=== PATIENT | female | born 1970 | race American Indian/Alaskan Native ===

== ENCOUNTER 2017-10-02 05:51 | Observation (INO) | payer BC ==
--- NOTE | 2017-09-27 11:33 | Anesthesia Consultation ---
Anesthesia Consult and Med Hx Date of service: 10/02/17 - Airway Anesthetic Teeth Evaluation: Good ROM Head & Neck: Adequate Mental/Hyoid Distance: Adequate Mallampati Class: Class I Intubation Access Assessment: Good - Pulmonary Exam CTA: Yes - Cardiac Exam Cardiac Exam: RRR - Pre-Operative Health Status ASA Pre-Surgery Classification: ASA2 Proposed Anesthetic Plan: General Nerve Block: TAP - Central Nervous System Hx Psychiatric Problems: No - Gastrointestinal Hx Gastroesophageal Reflux Disease: Yes - Hematic Hx Anemia: Yes - Other Systems Hx Alcohol Use: Yes (occas) Hx Cancer: No Hx Obesity: Yes - Additional Comments Anesthesia Medical History Comments: Informed consent obtained
[2017-09-27 11:38] LABS: Basophils # (Auto) 0.1 K/mm3 (0.0-0.1); Basophils % (Auto) 0.9 % (0.0-1.8); Eosinophils # (Auto) 0.4 K/mm3 (0.0-0.4); Eosinophils % (Auto) 3.7 % (0.0-4.3); Hematocrit 36.6 % (30.3-42.9); Hemoglobin 11.9 gm/dl (10.1-14.3); Lymphocytes # (Auto) 4.1 K/mm3 (1.2-5.4); Lymphocytes % (Auto) 38.3 % (13.4-35.0); Mean Corpuscular HGB Conc 33 % (30-34); Mean Corpuscular Hemoglobin 28 pg (28-32); Mean Corpuscular Volume 87 fl (79-97); Monocytes # (Auto) 0.6 K/mm3 (0.0-0.8); Platelet Count 353 K/mm3 (140-440); Red Cell Distribution Width 15.2 % (13.2-15.2)
--- NOTE | 2017-10-01 18:42 | History and Physical Report ---
History of Present Illness Date of examination: 09/27/17 History of present illness: Past History : 2 Term Births: 2 Living Children: 2 svdx2 [employer] AG[employer] History Operations: Tubal Ligation Cholecystectomy hemorrhoidectomyx2 Abnormal PAP: negative Infection History HIV Risk Eval: no Hx of STD: None Active Medications (reviewed today): IBUPROFEN 800 MG ORAL TABLET (IBUPROFEN) 1 po TID (PRN) OXYCODONE-ACETAMINOPHEN 5-325 MG ORAL TABLET (OXYCODONE-ACETAMINOPHEN) 1-2po q6h Current Allergies (reviewed today): No known allergies Past Medical History: Reviewed history from 06/24/2014 and no changes required: Negative Past Medical History Past Surgical History: Reviewed history from 06/24/2014 and no changes required: Tubal Ligation Cholecystectomy hemorrhoidectomyx2 Family History Summary: Reviewed history Last on 07/04/2017 and no changes required:10/01/2017 Other family member - Has No Family History of Breast Cancer - Entered On: 06/24 Other family member - Has No Family History of Ovarvian Cancer - Entered On: 07/2014 Other family member - Has No Family History of DVT/PE on OCP - Entered On: 06/24 Mother (biol.) - Has Family History Colon Cancer - Entered On: 07/09/2016 Other family member - Has No Family History of Biliary Tract Cancer - Entered On : 07/09/2016 Other family member - Has No Family History of Brain Cancer - Entered On: 2015 Other family member - Has No Family History of Kidney/Urinary Tract Cancer - Entered On: 07/09/2016 Other family member - Has No Family History of Pancreatic Cancer - Entered On: 07/09/2016 Other family member - Has No Family History of Stomach Cancer - Entered On: Other family member - Has No Family History of Small Bowel Cancer - Entered On: 07/09/2016 Other family member - Has No Family History of Uterine Cancer - Entered On: Social History: Reviewed history from 07/04/2017 and no changes required: Patient is Smoking History: Patient has never smoked. Risk Factors: PAP Smear History: Date of Last PAP Smear: 07/04/2017 Previous Tobacco Use: Signed On - 07/27/2017 Smoked Tobacco Use: Never smoker Smokeless Tobacco Use: Never Passive smoke exposure: no Drug use: no HIV high-risk behavior: no Previous Alcohol Use: Signed On - 07/27/2017 Alcohol use: no Exercise: no Seatbelt use: 100 % Mammogram History: Date of Last Mammogram: 06/21/2016 PAP Smear History: Date of Last PAP Smear: 07/04/2017 Review of Systems General Denies fever, chills, sweats, anorexia, fatigue, weakness, malaise, weight loss and sleep disorder. Complains of menorrhagia and pelvic pain. Denies vaginal discharge, incontinence, dysuria, hematuria, urinary frequency, amenorrhea, abnormal vaginal bleeding, genital sores, decreased libido, painful periods, painful sex, urinary urgency, hot flashes, vaginal dryness, vaginal itching and vaginal odor. CV Denies chest pains, palpitations, syncope, dyspnea on exertion, orthopnea, PND and peripheral edema. Resp Denies cough, dyspnea at rest, excessive sputum, hemoptysis, wheezing and pleurisy. GI Denies nausea, vomiting, diarrhea, constipation, change in bowel habits, abdominal pain, melena, hematochezia, jaundice, gas/bloating, indigestion/ heartburn, dysphagia and odynophagia. Endo Denies cold intolerance, heat intolerance, polydipsia, polyphagia, polyuria and unusual weight change. Breast Denies left breast lump, right breast lump, nipple discharge, bloody discharge from nipple, breast pain, abnormal mammogram and breast enlargement. MS Denies back pain, joint pain, joint swelling, muscle cramps, muscle weakness, stiffness, arthritis, sciatica, restless legs, leg pain at night and leg pain with exertion. Derm Denies rash, itching, dryness and suspicious lesions. Neuro Denies paralysis, paresthesias, headache, seizures, tremors, vertigo, transient blindness, frequent falls, frequent headaches and difficulty walking. Psych Denies depression, anxiety, irritability and mood swings. Eyes Denies blurring, diplopia, irritation, discharge, vision loss, eye pain and photophobia. ENT Denies earache, ear discharge, tinnitus, decreased hearing, nasal congestion, nosebleeds, sore throat and hoarseness. Allergy Denies urticaria, allergic rash, hay fever and recurrent infections. Heme Denies abnormal bruising, bleeding and enlarged lymph nodes. Physical Exam Appearance: well developed, well nourished, no acute distress Other Exams Breast exam: no masses or nipple discharge Lungs: no rales, rhonchi, or wheezes Heart: S1, S2, no murmur, rub, or gallop Abdomen: soft, non-tender, no masses Skin: no ulcers, xanthomas Extremities: normal alignment, no joint enlargement, crepitus, masses or tenderness; normal tone and strength Genitourinary Exam Vulva: normal, no lesions or discharge Urethral meatus: normal size and location, no lesions or discharge Urethra: no discharge Bladder: no cystocele Vagina: normal appearance, no discharge, lesions. No evidence of cystocele or rectocele. Cervix: normal appearance, no lesions, no discharge Uterus: normal position, midline, mobile Adnexa: no masses or tenderness Impression & Recommendations: Problem # 1: Menorrhagia (ICD-626.2) (MQU72-J66.0) Diagnosis explained to patient . Questions answered. Discussed with patient various medical and surgical therapies common for treatment: Hormonal/medical therapy,endometrial ablation or hysterectomy. Her updated medication list for this problem includes: Ibuprofen 800 Mg Oral Tablet (Ibuprofen) ..... 1 po tid (prn) Consent reviewed and signed . Possible laparoscopy or laparotomy explained to patient. The risks and alternatives for this surgery were reviewed with the patient. She was informed of possible bleeding, infection, injury to bowel, bladder, ureters or other adjacent organs. She was informed she will not be able to get after her uterus has been removed. She desires ovarian conservation. She was informed she may require surgery later to have her ovaries removed for a benign or mailgnant condition The patient was instructed/informed the following: The normal length of hospital stay for this procedure. Nothing to eat or drink after midnight the evening prior to surgery. Clear liquids the day before surgery. Fleets enema the day prior to surgery. Pre-op instruction sheets given. Wound care instructions given. Infection precautions reviewed, patient to call for any signs or symptoms of infection. The usual discomforts associated with this procedure were detailed. Proper use of pain medicines was reviewed. Patient was given ample opportunity to have all her questions answered before signing informed consent. Problem # 2: Fibroids, uterus (ICD-218.9) ([id number]-P02.9) Diagnosis explained to patient . Questions answered. Discussed with patient various medical, surgical and radioloigal therapies common for treatment: Hormonal/medical therapy, fibroid embolization, removal of fibroids or hysterectomy She desires to proceed with hysterectomy Her updated medication list for this problem includes: Ibuprofen 800 Mg Oral Tablet (Ibuprofen) ..... 1 po tid (prn) Oxycodone-acetaminophen 5-325 Mg Oral Tablet (Oxycodone-acetaminophen) ..... 1-2po q6h Problem # 3: Pelvic and perineal pain (ICD-789.00) (NTG55-K00.2) Endometriosis was explained, shewa informed the disease ,if present, will progress and worsen if her ovaries remain intact. It was extensively explained to her that her pain may persist, recur or change in nature due to the difficulty with diagnosis chronic pelvic pain or development of adhesions. She declined other treatment options at this time. Her updated medication list for this problem includes: Ibuprofen 800 Mg Oral Tablet (Ibuprofen) ..... 1 po tid (prn) Oxycodone-acetaminophen 5-325 Mg Oral Tablet (Oxycodone-acetaminophen) ..... 1-2po q6h Problem # 4: Pelvic mass, Left lower quadrant (ICD-789.34) ([id number]) Her updated medication list for this problem includes: Ibuprofen 800 Mg Oral Tablet (Ibuprofen) ..... 1 po tid (prn) Oxycodone-acetaminophen 5-325 Mg Oral Tablet (Oxycodone-acetaminophen) ..... 1-2po q6h Medications Added to Medication List This Visit: 1) Ibuprofen 800 Mg Oral Tablet (Ibuprofen) .... 1 po tid (prn) 2) Oxycodone-acetaminophen 5-325 Mg Oral Tablet (Oxycodone-acetaminophen) .... 1-2po q6h Prescriptions: IBUPROFEN 800 MG ORAL TABLET (IBUPROFEN) 1 po TID (PRN) #30 x 1 Entered and Authorized by: Lauryn Huffman MD Method used: Print then Give to Patient RxID: [id number] OXYCODONE-ACETAMINOPHEN 5-325 MG ORAL TABLET (OXYCODONE-ACETAMINOPHEN) 1-2po q6h #30 x 0 Entered and Authorized by: Lauryn Huffman MD Method used: Print then Give to Patient RxID: [id number] Medications and Allergies Allergies Allergy/AdvReac Type Severity Reaction Status Date / Time No Known Allergies Allergy Unverified 09/26/17 11:09 Home Medications Medication Instructions Recorded Confirmed Last Taken Type No Known Home Medications [No 09/26/17 09/26/17 Unknown History Reported Home Medications] Active Meds: Active Medications Cefazolin Sodium (Ancef/Sterile Water 2 Gm/20 Ml) 2 gm in 20 mls @ 80 mls/hr IV PREOP NR PRN Reason: Protocol Exam Vital Signs Temp Pulse Resp BP 98.8 F 80 18 124/76 09/27/17 11:10 09/27/17 11:10 09/27/17 11:10 09/27/17 11:10 Results - Labs 09/27/17 11:25
[~2017-10-02 05:51] MED LIST: ANCEF/STERILE WATER 2 GM/20 ML 2 GM/20 ML SYRINGE IV NR
[2017-10-02] MEDS ORDERED: LACTATED RINGERS 1,000 ML ONE (07:16)
--- NOTE | 2017-10-02 07:16 | Anesthesia Day of Surgery ---
Anesthesia Day of Surgery - Day of Surgery Patient Examined: Yes Patient H&P Reviewed: Yes Patient is NPO: Yes
[2017-10-02] MEDS ORDERED: SUBLIMAZE IV NR (07:17)
[2017-10-02] MEDS ORDERED: MARCAINE 0.5% INFILTRATI ONE (07:23)
[2017-10-02] MEDS ORDERED: MARCAINE 0.5% 30 ML INFILTRATI ONE (07:23)
[2017-10-02] MEDS ORDERED: DECADRON ONE ×2 (07:23→09:13)
[2017-10-02] MEDS ORDERED: XYLOCAINE 1% 20 mL ONE (07:23)
[2017-10-02] MEDS ORDERED: DILAUDID ONE ×2 (07:35→11:32)
[2017-10-02] MEDS ORDERED: DIPRIVAN 10 MG/ML IV ONE (07:35)
[2017-10-02] MEDS ORDERED: ZEMURON IV ONE (07:36)
[2017-10-02] MEDS ORDERED: XYLOCAINE MPF 2% ONE (07:36)
[2017-10-02] MEDS ORDERED: NEOSPORIN GU IR ONE ×2 (07:44→10:00)
[2017-10-02] MEDS ORDERED: LACTATED RINGERS 1,000 ML IV SCH (08:00)
[2017-10-02] MEDS ORDERED: PEPCID PO NR (08:00)
[2017-10-02] MEDS ORDERED: VERSED IV NR (08:00)
[2017-10-02] MEDS ORDERED: NEURONTIN PO NR (08:00)
[2017-10-02] MEDS ORDERED: ZOFRAN IV PRN ×2 (09:11→12:08)
[2017-10-02] MEDS ORDERED: NACL 0.9% IR ONE (10:00)
[2017-10-02] MEDS ORDERED: ROBINUL ONE (10:08)
[2017-10-02] MEDS ORDERED: NEOSTIGMINE ONE (10:08)
[2017-10-02] MEDS: DILAUDID IV PRN ×3 (10:50→11:30)
--- NOTE | 2017-10-02 11:09 | Post Anesthesia Evaluation ---
- Post Anesthesia Evaluation Patient Participated: Yes Airway Patent: Yes Stable Respiratory Function: Yes Nausea/Vomiting: No Temp > 96.8F: Yes Pain Manageable: Yes Adequeate Hydration: Yes Anesthesia Complications: No Block Receding Appropriately: Not Applicable Patient on Ventilator: No
[2017-10-02] MEDS ORDERED: TORADOL ONE (11:11)
[2017-10-02] MEDS ORDERED: TYLENOL PO PRN (12:08)
[2017-10-02] MEDS ORDERED: TYLENOL PR PRN (12:08)
[2017-10-02] MEDS ORDERED: REGLAN IV PRN (12:08)
[2017-10-02] MEDS ORDERED: ANCEF/NS 1 GM/50 ML 1 GM/50 ML BAG IV SCH (12:08)
[2017-10-02] MEDS ORDERED: REGLAN PO PRN (12:08)
[2017-10-02] MEDS ORDERED: ZOFRAN PO PRN (12:08)
[2017-10-02] MEDS ORDERED: MORPHINE IV PRN ×2 (12:08)
[2017-10-02] MEDS: TORADOL IV SCH ×2 (12:38→18:36)
[2017-10-02] MEDS: NACL 0.9% 1000 ML 1,000 ML IV SCH ×2 (13:00→20:54)
--- NOTE | 2017-10-02 13:08 | Post Operative Note ---
Pre-op diagnosis: menorrhagia, fibroids, pelvic mass Post-op diagnosis: same Procedure: RATH Anesthesia: GETA Director Cardiology: JACLYN BECERRA Estimated blood loss: minimal Specimen disposition: to lab Condition: stable Disposition: PACU
[2017-10-02] MEDS: PERCOCET 5/325 PO PRN ×2 (15:06→20:52)
[2017-10-02] MEDS: ceFAZolin 1 GM in NACL 0.9% 20 ML IV SCH ×2 (15:22→22:42)
--- NOTE | 2017-10-02 16:53 | Operative Report ---
Operative Report Operative Report: Date: 10/02/2017 Preoperative diagnosis: 1. Menorrhagia 2. Uterine fibroids 3. Left pelvic mass 4. Pelvic pain Postoperative diagnosis: 1. Menorrhagia 2. Uterine fibroids 3. Left pelvic mass 4. Pelvic pain Procedure: 1. Robotic-assisted laparoscopic total hysterectomy 2. Laparoscopic bilateral salpingectomy 3. Laparoscopic excision of left broad ligament mass Surgeon: Lauryn Huffman MD Manager Field Sales: Kavita Diallo assembler surgical garment Anesthesiologist: Ailyn Angulo M.D. Anesthesia: General endotracheal anesthesia EBL: Approximately [] mL Findings: Uterus was sounded to 10 cm. Grossly normal ovaries. Grossly normal interrupted bilateral fallopian tubes. Uterus with multiple uterine fibroids. Approximate 4 cm left broad ligament mass. Procedure: Patient was taken to the OR and placed in the supine position. General anesthesia was induced and an oral gastric tube was placed. Her neck and head were placed on foam support. Foam eye protection with goggles were secured in place. Then foam face protection was placed and secured. Foam shoulder pads were then positioned on her shoulders for Trendelenburg positioning. She was then placed in dorsolithotomy position. Exam under anesthesia as above. The abdomen and vagina were then prepped and draped in the usual sterile fashion. Timeout was performed. A Montoya catheter was inserted into the bladder with drainage of clear yellow urine. The operative speculum was introduced into the vagina and the anterior lip of the cervix was grasped with single-toothed tenaculum. The uterus was sounded to 10 cm. The cervix was progressively dilated to allow the large V care uterine manipulator. The bulb of the manipulator was inflated and the speculum and tenaculum were removed. The cup of the manipulator was placed around the cervix and the blue occluder of the manipulator was properly positioned in the vagina. A moist laparotomy sponge that was saturated with a solution of polymyxin and saline was placed in the vagina to ensure pneumoperitoneum. Sterile gloves were placed and attention was turned to the abdomen. A 10 mm vertical supraumbilical incision was made approximately 10 cm superior to the elevated fundus of the uterus. A 12 mm trocar with the laparoscope and camera attached was introduced through this incision under direct visualization. The abdomen was insufflated. No obvious bowel, bladder, ureteral, or major vascular injury was noted. The patient was then placed in steep Trendelenburg position and the following trochars were placed under direct visualization: 8 mm robotic trochars were placed through incisions made in the bilateral midclavicular lower abdominal region approximately 10 cm lateral and approximately 2 cm below the midline incision, and a 5 mm trocar was placed through an incision made in the right lower lateral pelvis approximately 2 cm superior to the iliac crest. The 10 mm laparoscope was then replaced by a 5 mm laparoscope that was placed through the 5 millimeter lateral trocar. The 12 mm trocar was then removed in the Sharan Melton fascial closure device was placed through the incision and a 0 Vicryl was placed through the fascia. Once the suture was secured the 12 mm trocar was reintroduced. Once the trochars were in the appropriate positions, the da Lauren robot system was engaged. The EndoShears and bipolar device was placed through the 8 mm trochars and positioned then attention was turned to the console. The uterus was elevated and bilateral salpingectomy was performed. Each tube was removed through the 5 mm trocar and sent to pathology in separate containers. Then the utero-ovarian ligaments were clamped. cauterized and incised bilaterally using 30 W of energy. Then the round ligaments were clamped , cauterized and incised bilaterally. The anterior leaf of the broad ligament was elevated and careful blunt and sharp dissection the bladder flap was created and dissected away from the lower uterine segment and cervix. The posterior leaf of the broad ligament was dissected away from the uterine vessels. The cup of the uterine manipulator was palpated both anteriorly and posteriorly. Course of the ureters was visualized and was confirmed to be away from the operative field. The uterine vessels were then clamped and cauterized bilaterally. Blanching of the uterus was then noted. Attention was again turned to the anterior lower uterine segment and the bladder was confirmed to be away from the operative field. Then attention was turned again to the posterior where the cup of the manipulator was palpated and a colpotomy was performed down to the cup. The incision was extended in the lateral position the uterine vessels that were again clamped and cauterized and incised. Continuing along the cup of the manipulator in a circumferential manner the colpotomy was completed. The uterus and cervix were then removed through the vaginal incision. The pelvis was irrigated with warm normal saline. A moist laparotomy sponge was placed in the vagina to maintain pneumoperitoneum. Attention was turned to the left broad ligament with the peritoneum was dissected away from the pelvic mass with both blunt and sharp dissection. The ureter was posterior to the mass away from the operative field. The laparotomy sponge was removed from the vagina and the mass was then removed also from the vagina. The pelvis was again irrigated with warm normal saline. The vagina cuff was reapproximated using V LOC 180 suture in a simple running stitch. Then a J stitch was performed to secure the suture. Again the pelvis was copiously irrigated with polymixin in warm normal saline. The laparotomy sponge was removed from the vagina. No bowel, bladder, ureteral or major vascular injury was noted. Once hemostasis was noted, Kapil was applied to the operative field to ensure hemostasis. Then Interceed was applied to the operative field to decrease formation of adhesions. Again hemostasis was noted. Then the instruments were removed, the robot was disengaged. The 12 mm trocar was removed and the fascia was ligated with the 0 Vicryl suture that was placed at the beginning of the procedure. The patient was taken out of Trendelenburg position, the abdomen was desufflated, the remaining trochars were removed. Incisions were reapproximated using 4-0 Vicryl in a subcuticular manner. Surgiseal was placed over the incisions. The vagina was then inspected, no bleeding was noted and clear yellow urine was draining into the Montoya bag from the bladder at the end of the procedure. Patient was taken to recovery room in stable condition.
[2017-10-03] MEDS: TORADOL IV SCH ×2 (00:19→06:23)
[2017-10-03] MEDS: NACL 0.9% 1000 ML 1,000 ML IV SCH (04:03)
[2017-10-03 05:33] LABS: Hematocrit 28.8 % (30.3-42.9); Hemoglobin 9.6 gm/dl (10.1-14.3); Mean Corpuscular HGB Conc 33 % (30-34); Mean Corpuscular Hemoglobin 28 pg (28-32); Mean Corpuscular Volume 85 fl (79-97); Platelet Count 262 K/mm3 (140-440); Red Blood Count 3.37 M/mm3 (3.65-5.03); Red Cell Distribution Width 15.1 % (13.2-15.2)
--- NOTE | 2017-10-03 07:17 | Discharge Summary ---
Providers - Providers Date of Admission: 10/02/17 10:44 Date of discharge: 10/03/17 Attending physician: JACLYN BECERRA Primary care physician: MOO ALAMO Hospitalization Condition: Good Procedures: RATH, (B) salpingectomy, excision of pelvic mass Hospital course: Uncomplicated. Disposition: - TO HOME OR SELFCARE - Discharge Diagnoses (1) Anemia Status: Acute Qualifiers: Other causes of anemia: acute posthemorrhagic Comment: Asymptomatic, with stable VS (2) History of robot-assisted laparoscopic hysterectomy Status: Acute (3) Status post bilateral salpingectomy Status: Acute (4) Pelvic mass in female Status: Resolved Core Measure Documentation - Palliative Care Palliative Care/ Comfort Measures: Not Applicable - Core Measures Any of the following diagnoses?: none Exam - Constitutional Vitals: Temp Pulse Resp BP Pulse Ox 98.7 F 68 20 114/78 90 10/03/17 04:20 10/03/17 04:20 10/03/17 04:20 10/03/17 04:10/02/17 16:40 General appearance: Present: no acute distress - Respiratory Respiratory effort: normal Respiratory: negative: CTA - Cardiovascular Rhythm: regular - Extremities Extremities: no ischemia, No edema - Abdominal General gastrointestinal: Present: soft, non-tender, non-distended, normal bowel sounds - Integumentary Integumentary: Present: clear, warm, dry (Trocar sites C/D/I) - Psychiatric Psychiatric: appropriate mood/affect, intact judgment & insight Plan Activity: other (No sex. No driving. ) Weight Bearing Status: Full Weight Bearing (Ambulate ~1mile on your property a day. Void frequently to avoid pressure occurring in the vagina. Use your incentive spirometer every hour while awake.) Diet: regular (Eat small meal frequently, avoid spicy, high salt and starchy food. Drink ~100oz water a day) Wound: open to air, keep clean and dry (May clean incisions with water. ) Special Instructions: no heavy lifting (Greater than 25#) Follow up with: MOO ALAMO MD [Primary Care Provider] - 7 Days JACLYN BECERRA MD [Staff Physician] - (As scheduled)
[2017-10-03] MEDS: PERCOCET 5/325 PO PRN ×2 (08:30→14:35)
[2017-10-03 12:39] VITALS: BP 104/51
== END 2017-10-03 15:15 | disposition home or self-care (01) ==
LOC: OR 05:51 → OB 10:44
PROVIDERS: ADMIT Obstetrics & Gynecology; ATTEND Obstetrics & Gynecology
DX: D25.9 Leiomyoma of uterus, unspecified (principal); N92.0 Excessive and frequent menstruation with regular cycle; R19.04 Left lower quadrant abdominal swelling, mass and lump; D64.9 Anemia, unspecified; K21.9 Gastro-esophageal reflux disease without esophagitis; E66.9 Obesity, unspecified; Z68.36 Body mass index [BMI] 36.0-36.9, adult
CPT/HCPCS: 36415; 58552; 58662; 64450; 81025; 85025; 85027; 86850; 86900; 86901; 88300; 88305; 88307; 96374; 96375; 96376; A4217; C1765; G0378; J0690; J1100; J1170; J1885; J2250; J2405; J2704; J2710; J2765; J3010; J7030; J7120; S2900; 88302